=== PATIENT | female | born 1960 | race Asian ===

== ENCOUNTER 2022-12-25 08:13 | Outpatient (CLI) | payer BC ==
[2022-12-25] MEDS ORDERED: Iopamidol 300 61% 100 ML VIAL FS ONE (08:44)
== END 2022-12-25 08:14 | disposition home or self-care (01) ==
LOC: CSHCT 08:13
PROVIDERS: ATTEND Internal Medicine Gastroenterology
DX: A04.8 Other specified bacterial intestinal infections (principal); B96.81 Helicobacter pylori [H. pylori] as the cause of diseases classified elsewhere; Z12.11 Encounter for screening for malignant neoplasm of colon; D18.03 Hemangioma of intra-abdominal structures; R12 Heartburn; K76.0 Fatty (change of) liver, not elsewhere classified
CPT/HCPCS: 74170; 82565